=== PATIENT | male | born 2000 | race Caucasian/White ===

== ENCOUNTER 2021-03-23 12:20 | Emergency (ER) | payer OTHER ==
[~2021-03-23] VITALS: Ht 175.3 cm; Wt 90.9 kg
[2021-03-23] MEDS ORDERED: LIDOCAINE 1% 10 ML VIAL PERC ONE (13:15)
[2021-03-23] MEDS ORDERED: PERTUSS(ACELL),DIPH,TET VAC/PF 0.5 ML SYRINGE IM. ONE (13:15)
[2021-03-23 14:42] VITALS: BP 135/87
== END 2021-03-23 14:57 | disposition home or self-care (01) ==
LOC: EMS 12:45
DX: S61.412A Laceration without foreign body of left hand, initial encounter (principal); F17.210 Nicotine dependence, cigarettes, uncomplicated; W26.0XXA Contact with knife, initial encounter; Y93.89 Activity, other specified; Y92.89 Other specified places as the place of occurrence of the external cause; Y99.8 Other external cause status
CPT/HCPCS: 12001; 73130; 90471; 90715; 99283; J3490